=== PATIENT | male | born 1955 | race Caucasian/White ===

== ENCOUNTER → 2022-04-25 14:49 | Outpatient (BNVA) | payer BC, SELFPAY | PROVIDERS: Visit Provider Internal Medicine Cardiovascular Disease | DX: I49.9 Cardiac arrhythmia, unspecified (principal); I10 Essential (primary) hypertension | CPT/HCPCS: 93005 ==

== ENCOUNTER → 2022-05-24 14:08 | Outpatient (REF) | payer BC, SELFPAY ==
--- NOTE | 2022-05-24 14:15 | HM_ITS ---
Conclusion: 1. Patient was monitored for total period of 13 days and 13 hours 2. Baseline was normal sinus rhythm with average heart of 70 beats per minute 3. No significant pauses noted 4. Total of 151,621 PACs accounting for total of 11.3% of total beats account for frequent PACs next 5. Frequent episodes of SVT with longest lasting 49 beats and the fastest 166 beats per minute 5. Total of 4933 PVCs accounting for 0.4% of total beats account for occasional PVCs 6. Patient marked 1 counter which correlated with PVC and PAC MTDD
--- NOTE | 2022-05-24 14:15 | CA_ITS ---
Transthoracic Echocardiogram Patient (Last, First, Middle): Tom Rich, Gender: Male Date of : 1955 Age: 66 Procedure Date: 05/24/2022 Procedure Type: Transthoracic Echocardiogram Location: OP Height: 175.26 cm Weight: 88.45 kg BSA: 2.04 m2 Heart Rate: 81 bpm BP: 128 / 74 mmHg Director Of Revenue: ASHLEY Referring MD: Osman Coleman MD Symptoms: I49.9 - Cardiac arrhythmia, unspecified Study Quality: Adequate ECG Rhythm: Sinus Conclusions: - The left ventricular systolic function is normal. The calculated ejection fraction is 63% by biplane method. - Mildly increased right ventricular cavity size. - No obvious valvular pathology seen on this study. Findings Left Ventricle Normal left ventricular cavity size. There is normal left ventricular wall thickness. The left ventricular systolic function is normal. The calculated ejection fraction is 63% by biplane method. There is no evidence of regional wall motion abnormalities. Diastolic function is normal for age. LV peak GLS -12.2%, but possibly underestimate. Right Ventricle Mildly increased right ventricular cavity size. There is normal right ventricular systolic function. Atria Both atria are normal in size. There is lipomatous hypertrophy of the interatrial septum. Aortic Valve There is a normal trileaflet aortic valve. There is no aortic valve stenosis. There is no aortic valve regurgitation. Mitral Valve The mitral valve appears normal. There is trace mitral valve regurgitation. There is no mitral valve stenosis. Pulmonic Valve The pulmonic valve is likely normal. Tricuspid Valve Normal tricuspid valve structure. There is trace tricuspid valve regurgitation. There is no evidence of pulmonary hypertension. Great Vessels The asc aorta is normal in size. Venous The inferior vena cava is normal in size and collapses greater than 50% with inspiration. Pericardium/Pleural There is no evidence of pericardial effusion. Prior Study Comparison No prior study available for comparison. Recommendations, Care & Conclusions No obvious valvular pathology seen on this study. Measurements 2D Linear Measurements IVSd: 0.76 0.6-0.9/0.6-1.0 cm LVIDd: 5.12 3.9-5.3/4.2-5.9 cm LVIDd Index: 2.51 2.4-3.2/2.2-3.1 cm/m2 LVIDs: 3.29 2.0-3.6 cm LVPWd: 0.72 0.7-1.1 cm LA Diam: 4.00 2.7-3.8/3.0-4.0 cm LAIDs Index: 1.96 1.5-2.3 cm/m2 LV Mass: 158.46 67-162/88-224 g LV Mass Index: 77.68 43-95/49-115 g/m2 LVOT Diam: 2.50 3.0+(-)1.3 cm 2D Systolic Function EF 4C: 62.10 >55% EF 2C: 63.40 >55% EF BiP: 62.90 >55% Mitral Valve MV Pk E: 0.94 MV PK A: 0.90 MV Decel Time: 165.00 E/A: 1.10 E'Lateral: 9.57 E'Medial: 6.74 E/E' Med: 14.00 E/E' Lat: 9.90 PHT: 48.00 MVA PHT: 4.58 Decel [place]: 5.70 Aortic Valve AoV Pk Kenny: 1.24 AoV Mn Kenny: 0.92 AoV VTI: 0.24 AoV Pk Grad: 6.00 Aov Mn Grad: 4.00 AGUILA Cont.VTI: 3.38 LVOT LVOT Pk Kenny: 0.94 LVOT Mn Kenny: 0.59 LVOT VTI: 0.16 LVOT Pk Grad: 4.00 LVOT Mn Grad: 2.00 LVOT Diam: 2.50 LVOT Area: 4.91 Diastolic Function MV Pk E: 0.94 MV Pk A: 0.90 E/A: 1.10 E'Medial: 6.74 E/E' Med: 14.00 E' Laterial: 9.57 E/E' Lat: 9.90 Right Ventricle TAPSE (mm): 18.30 TVS' Kenny: 12.10 Tricuspid Valve RA Press: 8.00 Great Vessels Aorta Sinus of Valsalva: 3.60 2.0-3.5 cm Ao Asc: 3.70 2.1-3.4 cm Pulmonary Veins Pulm Vein S/D 1.20 Pulmonary Valve PV Pk Kenny: 1.00 Peak PV Grad: 4.00 Updated in Other Vendor System with Status of Final Jerardo Shepherd MD electronically signed on 05/26/2022 3:10:47 PM with status of Final
== END ==
LOC: HO.CARD 14:08
PROVIDERS: Visit Provider Internal Medicine Cardiovascular Disease
DX: I49.9 Cardiac arrhythmia, unspecified (principal)
CPT/HCPCS: 93246; 93306; 93356

== ENCOUNTER → 2022-05-27 08:52 | Outpatient (REF) | payer BC, SELFPAY ==
--- NOTE | ~2022-05-27 | NM_ITS ---
Exercise Myocardial perfusion study Indication: Chest pain to evaluate for myocardial ischemia Technique: The patient was brought in for an exercise perfusion study on 05/27/2022. Patient performed exercise as per Axel protocol and was injected 30 mCi of sestamibi was given intravenously one target HR was achieved. Images were obtained using the SPECT gamma camera interlaced with the gating device. Images were obtained in supine position. Resting perfusion study was performed on 06/02/2022. Patient was administered 30 mCi of sestamibi intravenously at rest. Images were then obtained in supine position. Images obtained with and without CT attenuation. Total DLP 106 mGy-cm. Images were processed with the software and compared side to side in short axis, horizontal long axis and vertical long axis views. Findings: The stress perfusion study showed non attenuated images show mildly reduced uptake in the inferior and inferoapical as well as basal lateral and inferolateral wall of the LV myocardium. Remainder of the LV myocardium is normally perfused. Attenuation corrected images show minimally reduced uptake in the apex of the LV myocardium.. The gated study shows normal LV systolic function with calculated LVEF of 69%. LV cavity is normal in size. The gated study shows normal systolic wall thickening and contraction of all segments. There is no transient ischemic dilation. Resting study shows nontender images show improved uptake in the inferior as well as basal lateral and inferolateral wall of the LV myocardium. Attenuation corrected images show minimally reduced uptake in the apex of the LV myocardium.. Gating at rest reveals normal systolic wall motion with ejection fraction at 59%. The findings are consistent with reversible defect seen on non attenuated images which could represent shifting attenuation artifact although ischemia cannot be entirely ruled out. Attenuated corrected images show no reversible defect and could be due to old correction images. NM/NM cardiolite stress test Impression: 1. Equivocal for inferior and basal lateral and inferolateral ischemia 2. Gated LVEF is 69% 3. Transient ischemic dilatation not present Stress EKG is equivocal for ischemia
--- NOTE | 2022-05-27 08:54 | CA_ITS ---
Acquisition Time: 2022-05-27 09:28:54 Total Exercise Time: 00:06:26 Test Indications: CP, Medications: Protocol: SUPA Max HR: 144 BPM 94% of Pred: 153 BPM Max BP: 140/070 mmHG Max Work Load: 7.5 METS Exercise stress test with 6 min 26 sec of Supa protocol achieving 92% of MPHR without anginal symptoms, with frequent PACs and occational PVCs, with normotensive reponse to exercise, withj EKG changes equivocal for ischemia; T wave inversion V1-V3 with exercise which could be related to RBBB and borderline ST changes leads 1 and aVL. Nuclear images pending. Test reviewed with Dr Shepherd. Referred By: Osman Coleman Overread By: PONCHO CISSE
== END ==
LOC: HO.CARD 08:52
PROVIDERS: Visit Provider Internal Medicine Cardiovascular Disease
DX: R07.9 Chest pain, unspecified (principal); I45.2 Bifascicular block
CPT/HCPCS: 78452; 93017; A9500

== ENCOUNTER 2022-07-02 07:31 | Outpatient (REF) | payer BC, SELFPAY ==
[2022-07-02 08:23] LABS: Anion Gap 12 (12-20); Blood Urea Nitrogen 23 mg/dL (9-16); Calcium 9.4 mg/dL (8.4-10.2); Carbon Dioxide 25 mmol/L (22-29); Chloride 105 mmol/L (96-108); Estimated Glomerular Filt Rate > 60; Glucose Random 91 mg/dL (60-115); Potassium 4.3 mmol/L (3.3-5.1); Sodium 138 mmol/L (135-145)
== END 2022-07-02 07:32 | disposition home or self-care (01) ==
LOC: HO.LAB 07:31
PROVIDERS: Visit Provider Internal Medicine Cardiovascular Disease
DX: Z01.812 Encounter for preprocedural laboratory examination (principal)
CPT/HCPCS: 36415; 80048

== ENCOUNTER → 2022-07-12 15:26 | Outpatient (BNVA) | payer BC, SELFPAY | PROVIDERS: PCP Nurse Practitioner Acute Care; Visit Provider Internal Medicine Cardiovascular Disease | DX: I25.10 Atherosclerotic heart disease of native coronary artery without angina pectoris (principal); I10 Essential (primary) hypertension; I49.9 Cardiac arrhythmia, unspecified | CPT/HCPCS: 99212 ==

== ENCOUNTER 2022-07-30 07:20 | Outpatient (REF) | payer BC, SELFPAY ==
[2022-07-30 09:37] LABS: Cholesterol 169 mg/dL; HDL Cholesterol 42 mg/dL; LDL Cholesterol Calculated 116 mg/dl; Triglycerides 56 mg/dL
[2022-08-01 16:03] LABS: CRP High Sensitivity 1.3 mg/L
== END 2022-07-30 07:21 | disposition home or self-care (01) ==
LOC: HO.LAB 07:20
PROVIDERS: PCP Nurse Practitioner Acute Care; Visit Provider Internal Medicine Cardiovascular Disease
DX: E78.5 Hyperlipidemia, unspecified (principal); I25.10 Atherosclerotic heart disease of native coronary artery without angina pectoris
CPT/HCPCS: 36415; 80061; 86141

== ENCOUNTER 2023-07-18 09:38 | Outpatient (AMB) | payer BC, SELFPAY ==
--- NOTE | 2023-07-18 09:39 | A.OFFVIS_ITS ---
Vital Signs 07/18/23 09:40 Height 5 ft 9 in Weight 196 lb 3.382 oz BMI 29.0 BP 130/82 Blood Pressure Location Lt brachial Position Sitting Pulse 73 Intake Visit Reasons: 1yr f/up Intake Note: 1 year follow-up with ekg ? 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 He continues to have no cardiac symptoms. Denies any exertional chest pain or shortness of breath. Denies any palpitations including prolonged irregular heartbeat or fast heart rate. Denies any lightheadedness, syncope. Takes all his medications. Last LDL was 116 mg/dL. He continues not to want to have statin therapy. Denies any heart failure symptoms. Review of Systems Const Denies chills, Denies fatigue, Denies fever(s), Denies frequent falls, Denies weakness, Denies weight gain and Denies weight loss ENT Denies dizziness Card Denies chest pain, Denies leg edema, Denies lightheadedness, Denies palpitations, Denies dyspnea, Denies dyspnea on exertion, Denies orthopnea and Denies other (loss of consciousness) Resp Denies cough, Denies dyspnea and Denies dyspnea on exertion GI Denies hematochezia and Denies change in stool character Musc Denies abnormal gait, Denies muscle weakness, Denies numbness, Denies radiating pain into limb and Denies tingling Neuro Denies Abnormal speech present, Denies abnormal gait, Denies dizziness, Denies frequent falls, Denies numbness, Denies tingling and Denies weakness Endo Denies fatigue and Denies palpitations Physical Exam Vital Signs: Last Vital Signs Pulse 73 07/18/23 09:40 BP 130/82 07/18/23 09:40 BMI result Body Mass Index 29.0 Const General: cooperative, comfortable, no acute distress, alert and awake Nutritional Appearance: overweight Orientation/consciousness: patient oriented x3 Limitations: no limitations Neck Neck: Yes trachea midline, Yes supple and Yes no JVD Resp Effort & Inspection: normal respiratory effort Auscultation: clear to auscultation bilaterally Cardio Jugular venous distension: no JVD Palpation: normal PMI Rate: regular rate Rhythm: abnormal rhythm with ectopic beats Heart sounds: S1 normal heart sound present, S2 normal heart sound present, no click, no gallops, no murmurs and no rubs GI Auscultation: normal bowel sounds Neuro General: patient oriented x3 and no focal motor deficits Speech: No Abnormal speech present Psych Appearance: grossly normal Office Procedures EKG Details: EKG shows normal sinus rhythm with right bundle and left anterior fascicular block with PACs, unchanged from before [id number], Complete Assessment & Plan Assessment & Plan (1) CAD (coronary artery disease): Code(s): I25.10 - Atherosclerotic heart disease of [place] coronary artery without angina pectoris Category: Medical Plan: CAD with nonobstructive plaquing in LAD. Discussed about management of atherosclerosis. His last LDL is 116 mg/dL, not well optimized. Target goal LDL should be closer to 60 mg/dL. Discussed with him. He said he has been trying diet therapy. He is going to repeat his lipid panel in near future. However he has not too excited about starting statin therapy. Currently on gemfibrozil therapy in his triglycerides while optimized. No additional therapy is needed at this point time. Continue aspirin therapy. Continue aggressive blood pressure control. Encouraged to continue to participate in physical activity as tolerated. Advised to call me with any new exertional symptoms. (2) HTN (hypertension): Code(s): I10 - Essential (primary) hypertension Category: Medical Plan: Hypertension which is currently well optimized advised to monitor blood pressure at home maintain a log. Recently lisinopril was increased due to white coat hypertension. Blood pressure at home are extremely well optimized. Continue the same. Continue stress mitigation strategies. Low-salt diet was discussed. (3) Cardiac arrhythmia: Code(s): I49.9 - Cardiac arrhythmia, unspecified Category: Medical Plan: Cardiac arrhythmias with frequent PACs, currently asymptomatic. No specific pharmacotherapy is required for the same. Recommend to avoid stimulants. Stress mitigation strategies were discussed advised to call me with any prolonged episodes of palpitations. (4) Bifascicular block: Code(s): I45.2 - Bifascicular block Category: Medical Plan: Bifascicular block which is stable. No interventions required per se for the same. Advised to call me with any symptoms of lightheadedness. Will follow up in the clinic in 1 year's time, sooner p.r.n.. Thank you for allowing me to partake in his care Coding Level of Care Code Est Pt Level 4 (30205) Diagnoses CAD (coronary artery disease) I25.10 HTN (hypertension) I10 Cardiac arrhythmia I49.9 Bifascicular block I45.2 CPT Codes EKG - CPT: 93763-[id number], Complete ([id number])
[2023-07-18 09:40] VITALS: BP 130/82; PULSE 73; BMI 29.0
== END 2023-07-18 10:16 | disposition home or self-care (01) ==
PROVIDERS: Visit Provider Internal Medicine Cardiovascular Disease
DX: I25.10 Atherosclerotic heart disease of native coronary artery without angina pectoris (principal); I10 Essential (primary) hypertension; I49.9 Cardiac arrhythmia, unspecified; I45.2 Bifascicular block
CPT/HCPCS: 93010; 99214

== ENCOUNTER → 2023-07-18 09:38 | Outpatient (BNVA) | payer BC, SELFPAY | PROVIDERS: Visit Provider Internal Medicine Cardiovascular Disease | DX: I25.10 Atherosclerotic heart disease of native coronary artery without angina pectoris (principal); I10 Essential (primary) hypertension; I49.9 Cardiac arrhythmia, unspecified; I45.2 Bifascicular block; Z79.82 Long term (current) use of aspirin; Z79.899 Other long term (current) drug therapy | CPT/HCPCS: 93005 ==

== ENCOUNTER 2024-07-16 08:38 | Outpatient (AMB) | payer BC, SELFPAY ==
--- NOTE | 2024-07-16 08:39 | MHC.OFFVIS ---
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 He has been doing very well from cardiac perspective. He says he regularly exercises and walks about 2-1/2 miles in 45 minutes and has no exertional symptoms of chest pain or shortness of breath. He denies any significant palpitations. Blood pressures been generally well controlled and he is maintaining a log with all of the blood pressures less than 130 systolic. He denies any other heart failure symptoms. Denies any lightheadedness, syncope. Takes all his medications. Recent lipid panel was done about 2 weeks ago, I do not have a copy of the same. Review of Systems Const Denies chills, Denies fatigue, Denies fever(s), Denies frequent falls, Denies weakness, Denies weight gain and Denies weight loss ENT Denies dizziness Card Denies chest pain, Denies leg edema, Denies lightheadedness, Denies palpitations, Denies dyspnea, Denies dyspnea on exertion, Denies orthopnea and Denies other (loss of consciousness) Resp Denies cough, Denies dyspnea and Denies dyspnea on exertion GI Denies hematochezia and Denies change in stool character Musc Denies abnormal gait, Denies muscle weakness, Denies numbness, Denies radiating pain into limb and Denies tingling Neuro Denies Abnormal speech present, Denies abnormal gait, Denies dizziness, Denies frequent falls, Denies numbness, Denies tingling and Denies weakness Endo Denies fatigue and Denies palpitations Physical Exam Vital Signs: Last Vital Signs Pulse 69 07/16/24 08:40 BP 116/82 07/16/24 08:40 BMI result Body Mass Index 29.9 Const General: cooperative, comfortable, no acute distress, alert and awake Nutritional Appearance: overweight Orientation/consciousness: patient oriented x3 Limitations: no limitations Neck Neck: Yes trachea midline, Yes supple and Yes no JVD Resp Effort & Inspection: normal respiratory effort Auscultation: clear to auscultation bilaterally Cardio Jugular venous distension: no JVD Palpation: normal PMI Rate: regular rate Rhythm: abnormal rhythm with ectopic beats Heart sounds: S1 normal heart sound present, S2 normal heart sound present, no click, no gallops, no murmurs and no rubs GI Auscultation: normal bowel sounds Neuro General: patient oriented x3 and no focal motor deficits Speech: No Abnormal speech present Psych Appearance: grossly normal Office Procedures EKG Details: EKG shows normal sinus rhythm with right bundle branch block as well as left anterior fascicular block with PACs, unchanged from before [id number], Complete Assessment & Plan Assessment & Plan (1) CAD (coronary artery disease): Code(s): I25.10 - Atherosclerotic heart disease of [place] coronary artery without angina pectoris Category: Medical Plan: Nonobstructive CAD with no new symptoms with exertion. Doing very well from that perspective. Does not require any further testing at this point time. However aggressive medical therapy is recommended to prevent further progression and/or having acute coronary syndrome. This was discussed with him. I would continue low-dose aspirin therapy. Continue aggressive blood pressure control which is currently well optimized on current therapy. Advised to continue monitor blood pressure at home maintain a log. Goal blood pressure less than 130/84. He is currently on gemfibrozil therapy for hypertriglyceridemia. I would like to see his lipid panel if he has elevated LDL would consider adding statin therapy although he is not too keen on it. Recommend couple of supplements such as garlic and red yeast rice to lower LDL cholesterol. Will think about the same. (2) Bifascicular block: Code(s): I45.2 - Bifascicular block Category: Medical Plan: Bifascicular block which has remained stable. No interventions required. Continue to monitor by annual EKG. (3) Cardiac arrhythmia: Code(s): I49.9 - Cardiac arrhythmia, unspecified Category: Medical Plan: Frequent PACs without any symptoms. Avoidance of stimulants was discussed. No pharmacotherapy is recommended for the same. Advised to call me with any prolonged palpitation irregular heartbeat. Patient was frequent PACs developed higher likelihood of developing atrial fibrillation. This was discussed with him. Will follow up in the clinic in 1 year's time, sooner p.r.n.. Thank you for allowing me to partake in his care Coding Level of Care Code Est Pt Level 4 (49438) Complex EM visit Add On [id number] Diagnoses CAD (coronary artery disease) I25.10 Bifascicular block I45.2 Cardiac arrhythmia I49.9 CPT Codes EKG - CPT: 00418-[id number], Complete ([id number])
[2024-07-16 08:40] VITALS: BP 116/82; PULSE 69; BMI 29.9
--- OUTSIDE RECORDS SUMMARY | 2024-07-16 09:03 | XMS_ITS | Clinical Summary ---
Author Organization [facility] Address [address] [place] [id number] Care Team Providers Care Behaviour Support Teacher Name Role Phone Lyric Allen APRN Primary Care Provider [phone] Lyric Allen BLAZE Unavailable [phone] Allergies Active Allergy Reactions Criticality Noted Date Comments Octacosanol Other (See Comments) 02/07/2024 Sneezing Medications aspirin 81 MG chewable tablet 05/26/2020 Act sandra amLODIPine (NORVASC) 10 MG tabletIndications :Essential hypertension TAKE 1 TABLET(10 MG) BY MOUTH DAILY 90 tablet 3 09/18/2023 Active gemfibrozil (LOPID) 600 MG tabletIndications :Hypertriglycerid emia Take 1 tablet (600 mg total) by mouth 2 (two) times a day before meals. 180 tablet 3 09/18/2023 Active lisinopril (PRINIVIL,ZeSTRIL ) 20 MG tabletIndications :Essential hypertension TAKE 1 TABLET BY MOUTH EVERY DAY 90 tablet 06/13/2024 Active Active Problems Problem Noted Date Diagnosed Date Essential hypertension 05/29/2020 Assessment & Plan (07/15/2024 2:56 PM EDT): Blood pressure readings are elevated in clinic today however home readings are normal. Will bring in BP monitor with next visit. Recommend exercising a minum of 150 minutes per week. modified Mediterranean style diet high in Fibrous Vegetables such as salad greens, raw carrots, broccoli, cauliflower, mushrooms, onions, asparagus, radishes, artichokes, cabbage, sweet potatoes, olive oil to promote growth of good bacteria in the GI tract; low in processed foods and sweets. Assessment & Plan (02/07/2024 5:34 PM EST): Blood pressure is normal. No side effects. Renal function is stable. Patient will continue lisinopril and amlodipine. DASH diet Recommend a minimum of 150 minutes of exercise a week. Assessment & Plan (08/13/2023 11:49 PM EDT): Tom blood pressure is elevated in clinic however blood pressure at home is within normal range. Will continue amlodipine and lisinopril. Check blood pressure twice a day for one week And notify the clinic of readings. DASH diet and exercise a minium of 150 minutes Assessment & Plan (07/09/2023 2:49 PM EDT): Blood pressure is not at goal. Increase Lisinopril to 20 mg. DASH diet Recommend a minimum of 150 minutes of exercise a week. Goal BP less than 130/80. Assessment & Plan (03/14/2023 4:35 AM EST): Blood pressure was elevated in clinic however as been normal at home. Patient will continue with current regimen. DASH diet Recommend a minium of 150 minutes of exercise a week. Check BP at home next couple of days and notify the clinic of readings. Assessment & Plan (09/12/2022 6:10 PM EDT): Blood pressure is normal. No side effects. Patient will continue with current regimen. DASH diet Recommend a minium of 150 minutes of exercise a week. Assessment & Plan (02/14/2022 2:42 PM EST): Tom is hypertensive on exam bilaterally. However home readings has been normal. Patient will check blood pressure daily and return in 1 week with blood pressure reading and blood pressure monitor. DASH diet Continue exercising daily Assessment & Plan (10/15/2021 10:24 PM EDT): Blood pressure normal on amlodipine and lisinopril. No side effects. Dash diet. Increase physical activity 3 to 5 days a week for minimum of 35 minutes. Assessment & Plan (07/14/2021 11:18 PM EDT): Arlen blood pressure is normal on amlodipine and lisinopril 10 mg. DASH diet Recommend exercising 3 to 5 days a week for minimum 35 minutes. Hyperlipidemia 05/29/2020 Assessment & Plan (02/07/2024 5:35 PM EST): Continue gemifbrozil Assessment & Plan (03/14/2023 4:38 AM EST): Total cholesterol- 169 LDL-116 HDL 42 Will continue Lopid for at this time and recheck lipid panel Assessment & Plan (09/12/2022 6:11 PM EDT): Cholesterol has improved, will follow-up with cardiology. Will refer to social work coordinator Assessment & Plan (10/15/2021 10:26 PM EDT): The 10-year ASCVD risk score (Nancy DC Jr., et al., 2013) is: 14.1% Values used to calculate the score: Age: 66 years Sex: Male Is Non- : No Diabetic: No Tobacco smoker: No Systolic Blood Pressure: 118 mmHg Is BP treated: Yes HDL Cholesterol: 56 mg/dL Total Cholesterol: 200 mg/dL Continue to gemfibrozil. 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 Encounters Date Type Department Care Team Description 06/27/2024 5:15 PM EDT Erroneous Encounter [address] [phone] Lyric Allen APRN Essential hypertension (Primary Dx); ERRONEOUS ENCOUNTER--DISREGARD 06/27/2024 Travel 06/12/[address] [id number] AlejandroLyric mendez, BLAZE Essential hypertension from Last 3 Months Immunizations Immunization Administration Dates Next Due Covid-19 mRNA Primary Series Vaccine - Moderna 0.5 mL Full Dose 07/16/2021,02/05/2021 Influenza High-Dose Quadriva lent,(FLUZONE HIGH-DOSE), Perservative Free IM 0.7 mL 65 years and older 12/10/2022,01/18/2021 Influenza High-Dose Trivalen t,(FLUZONE HIGH-DOSE), Perservative Free IM 0.5 mL 65 years and older 12/02/2023 Influenza Inactivated/Split Preservative Free IM 01/29/2018 Influenza, Quadrivalent (FLU ARIX, AFLURIA, FLULAVAL, FLUZONE) Preservative Free IM 12/18/2021 Influenza, Unspecified 12/02/2023,01/02/2020 Pneumococcal Conjugate 20-Valent 06/25/2021 RSV, Recombinant, Protein Torrez bunit RSV Prefusion F (AREXVY), Adjuvant Recon 0.5 mL PF 03/23/2024 Tdap 01/28/2022 Social History Tobacco Use Types Packs/Day Years Used Date Smoking Tobacco: Never Smokeless Tobacco: Never Tobacco Cessation:Counseling Given: Not Answered Alcohol Use Standard Drinks/Week Comments Never 0 (1 standard drink = 0.6 oz pur e alcohol) [facility] [employer] Answer Date Recorded In the past 12 months has [facility] [employer], gas, oil, or water [employer] threatened to shut off services in your home? No 02/04/2024 Social Connection and Isolat ion Panel [NHANES] Answer Date Recorded In a typical week, how many times do you talk on the phone with family, friends, or neighbors? More than three times a week 02/04/2024 Frequency of Social Gatherin gs with Friends and Family Not on file 02/04/2024 Attends Orthodoxy Services Not on file 02/03 Active Member of Clubs or Organizations Not on f ile 02/04/2024 Attends Club or Organization Meetings Not on em e 02/04/2024 Marital Status Not on file 02/04/2024 AUDIT-C Answer Date Recorded Q1: How often do you have a drink containing alc ohol? Monthly or less 02/04/2024 Q2: How many drinks containi ng alcohol do you have on a typical day when you are drinking? 1 or 2 02/04/2024 Frequency of Binge Drinking Not on file 01/18 PHQ-2 Answer Date Recorded PHQ-2 Total Score 0 03/07/2023 Hunger Vital Sign Answer Date Recorded Within the past 12 months, y ou worried that your food would run out before you got the money to buy more. Never true 02/04/20 24 Within the past 12 months, t he food you bought just didn't last and you didn't have money to get more. Never true 02/04/2024 PRAPARE - Transportation Answer Date Re corded In the past 12 months, has l ack of transportation kept you from medical appointments or from getting medications? No 01/18 In the past 12 months, has l ack of transportation kept you from meetings, work, or from getting things needed for daily living? No 02/04/2024 Housing Stability Vital Sign Answer Jose Martin e Recorded In the last 12 months, was t here a time when you were not able to pay the mortgage or rent on time? No 02/04/2024 In the past 12 months, how m any times have you moved where you were living? 0 02/04/2024 At any time in the past 12 m [facility], were you homeless or living in a jail (including now)? No 02/04/2024 Education Answer Date Recorded What is the highest level of school you have completed or the highest degree you have received? Associate degree: academic program 02/04/2024 Sex and Gender Information Value Date Recorded Sex Assigned at Male 07/05/2023 10:23 PM EDT Legal Sex Male 3:03 PM EDT Gender Identity Male 06/16/2021 4:27 PM EDT Sexual Orientation Heterosexual (straight) 06/16 4:27 PM EDT Last Filed Vital Signs Vital Sign Reading Time Taken Comments Blood Pressure 162/78 06/27/2024 5:00 PM EDT Pulse 75 06/27/2024 5:00 PM EDT Temperature 36.3 ??C (97.3 ??F) 06/27/2024 5:00 PM ED T Respiratory Rate 16 06/27/2024 5:00 PM EDT Oxygen Saturation 98% 06/27/2024 5:00 PM EDT Inhaled Oxygen Concentration - - Weight 92 kg (202 lb 12.8 oz) 06/27/2024 5:00 PM EDT Height 175.3 cm (5' 9 ) 06/27/2024 5:00 PM EDT Body Mass Index 29.95 06/27/2024 5:00 PM EDT Plan of Treatment Health Maintenance Due Date Last Done Comments Colonoscopy 09/22/1999 Zoster (Shingles) Vaccine (1 of 2) 2004 Physical 03/07/2024 03/07/2023, 02/14/2022 COVID-19 Vaccine ( season) 2024 12/02/2023, 12/10/2022, 12/11/2021, Additional history exists DTaP/Tdap/Td Vaccines (2 - Td or Tdap) 01/29/2032 01/28/2022 Hepatitis C Virus Screening Completed 05/21/2021 Pneumococcal Vaccines 50+ Completed 06/25/2021 Influenza Vaccine Completed 12/02/2023, , 12/10/2022, Additional history exists RSV Vaccine 60 years and older and Patients Completed 03/23/2024 Hepatitis B Vaccines Aged Out No long er eligible based on patient's age to complete this topic Procedures Procedure Name Priority Date/Time Associated Diagnosis Comments TSH REFLEX TO FREE T4 Routine 06/22/2024 9:20 AM EDT Screening for prostate cancer PSA Routine 06/22/2024 9:20 AM EDT Essential hypertension LIPID PANEL REFLEX DIRECT LDL Routine 06/22/2024 9:20 AM EDT Essential hypertension Other hyperlipidemia COMPREHENSIVE METABOLIC PANEL Routine 06/22/2024 9:20 AM EDT Essential hypertension COMPLETE BLOOD COUNT, WITHOUT DIFFERENTIAL Routine 06/22/2024 9:20 AM EDT Essential hypertension HEPATITIS C VIRUS (HCV) ANTIBODY Routine 05/21/2021 6:28 AM EST Need for hepatitis C screening test from Last 3 Months or Most Recently Relevant to Health Maintenance Results * (ABNORMAL) Lipid Panel Reflex Direct LDL (06/22/2024 9:20 AM EDT) Cholesterol, Total 186 <200 mg/dL [facility] Cholesterol, HDL 41 > OR = 40 mg/dL [facility] Triglycerides 100 <150 mg/dL [facility] LDL Cholesterol 124(H) mg/dL (calc) [facility] Comment: Reference range: <100 Desirable range <100 mg/dL for primary prevention; ?? <70 mg/dL for patients with CHD or diabetic patients with > or = 2 CHD risk factors. LDL-C is now calculated using the Julio calculation, which is a validated novel method providing better accuracy than the Friedewald equation in the estimation of LDL-C. Kendrick RAINEY et al. ALBERT. 2013;310(19): 5503-0086 (http://education.[employer]faq/SQU184) Cholesterol/HDL Ratio 4.5 <5.0 (calc) [facility] Non HDL Chol. (LDL+VLDL) 145(H) <130 mg/dL (calc) [facility] Comment: For patients with diabetes plus 1 major ASCVD risk factor, treating to a non-HDL-C goal of <100 mg/dL (LDL-C of <70 mg/dL) is considered a therapeutic option. Blood 06/22/2024 9:20 AM EDT 06/22/2024 9:21 AM EDT Narrative [facility] - 06/23/2024 7:34 AM EDT FASTING:YES FASTING: YES Lyric Allen APRN LAB BLOOD ORDERABLES Final Re sult [facility] [address] [place] [address] * TSH REFLEX FREE T4 (06/22/2024 9:20 AM EDT) TSH reflex Free T4 1.49 0.40 - 4.50 mIU/L [facility] Blood 06/22/2024 9:20 AM EDT 06/22/2024 9:21 AM EDT Narrative [facility] - 06/23/2024 7:34 AM EDT FASTING:YES FASTING: YES Lyric Allen BLAZE LAB BLOOD ORDERABLES Final Re sult Performing Organization Address [facility] de Phone Number [facility] [address] [place] [phone] * PSA (06/22/2024 9:20 AM EDT) Pathologist [facility] PSA, Total 0.36 < OR = 4.00 ng/mL [facility] Comment: The total PSA value from this assay system is standardized against the WHO standard. The test result will be approximately 20% lower when compared to the equimolar-standardized total PSA (Marco A [place]). Comparison of serial PSA results should be interpreted with this fact in mind. This test was performed using the Siemens chemiluminescent method. Values obtained from different assay methods cannot be used interchangeably. PSA levels, regardless of value, should not be interpreted as absolute evidence of the presence or absence of disease. Blood 06/22/2024 9:20 AM EDT 06/22/2024 9:21 AM EDT Narrative [facility] - 06/23/2024 7:34 AM EDT FASTING:YES FASTING: YES Lyric Allen BLAZE LAB BLOOD ORDERABLES Final Re sult Performing Organization Address [facility] de Phone Number [facility] [address] [place] [address] * Complete Blood Count, without Differential (06/22/2024 9:20 AM EDT) [facility] White Blood Cell Count 7.6 3.8 - 10.8 Thousand/u L [facility] Red Blood Cell Count 4.86 4.20 - 5.80 Million/uL [facility] Hemoglobin 14.6 13.2 - 17.1 g/dL [facility] Hematocrit 42.9 38.5 - 50.0 % [facility] MCV 88.3 80.0 - 100.0 fL [facility] MCH 30.0 27.0 - 33.0 pg [facility] MCHC 34.0 32.0 - 36.0 g/dL [facility] Comment: For adults, a slight decrease in the calculated MCHC value (in the range of 30 to 32 g/dL) is most likely not clinically significant; however, it should be interpreted with caution in correlation with other red cell parameters and the patient's clinical condition. RDW 12.7 11.0 - 15.0 % [facility] Platelet Count 252 140 - 400 Thousand/u L [facility] MPV 11.7 7.5 - 12.5 fL [facility] Blood Blood specimen / Unknown 06/22/2024 9:20 AM EDT 06/22/2024 9:21 AM EDT Narrative [facility] - 06/23/2024 7:34 AM EDT FASTING:YES FASTING: YES us Lyric Kit Allen POULTRY [employer] ICER LAB BLOOD ORDERABLES Final Re sult [facility] [address] [place] [phone] * Comprehensive Metabolic Panel (06/22/2024 9:20 AM EDT) [facility] Glucose 92 65 - 99 mg/dL [facility] Comment: ? Fasting reference interval Blood Urea Nitrogen (BUN) 18 7 - 25 mg/dL [facility] Creatinine 1.04 0.70 - 1.35 mg/dL [facility] Creatinine w/ eGFR 78 > OR = 60 mL/min/1. 73m2 [facility] BUN/Creatinine Ratio SEE NOTE: (calc) [facility] Comment: ?? Not Reported: BUN and Creatinine are within ?? reference range. ? Sodium 138 135 - 146 mmol/L [facility] Potassium 4.4 3.5 - 5.3 mmol/L [facility] Chloride 103 98 - 110 mmol/L [facility] CO2 27 20 - 32 mmol/L [facility] Calcium 9.2 8.6 - 10.3 mg/dL [facility] Protein, Total 7.5 6.1 - 8.1 g/dL [facility] Albumin 4.1 3.6 - 5.1 g/dL [facility] Globulin 3.4 1.9 - 3.7 g/dL (calc) [facility] Albumin/Globuli n Ratio 1.2 1.0 - 2.5 (calc) [facility] Bilirubin, Total 0.9 0.2 - 1.2 mg/dL [facility] Alkaline Phosphatase 55 35 - 144 U/L [facility] Aspartate Aminotrans (AST) 19 10 - 35 U/L [facility] Alanine Aminotrans (ALT) 11 9 - 46 U/L [facility] Blood 06/22/2024 9:20 AM EDT 06/22/2024 9:21 AM EDT Narrative [facility] - 06/23/2024 7:34 AM EDT FASTING:YES FASTING: YES Lyric Allen BLAZE LAB BLOOD ORDERABLES Final Re sult [facility] [address] [place] [phone] * Hepatitis C Virus (HCV) Antibody (05/21/2021 6:28 AM EST) Hepatitis C Antibody NON-REACT SANDRA NON-REACT SANDRA [facility] Hepatitis C Antibody (s/co) 0.01 <1.00 [facility] Comment: HCV antibody was non-reactive. There is no laboratory evidence of HCV infection. In most cases, no further action is required. However, if recent HCV exposure is suspected, a test for HCV RNA (test code 41977) is suggested. For additional information please refer to http://education.[employer]/faq/AQC05n9 (This link is being provided for informational/ educational purposes only.) Blood specimen (specimen) Blood specimen / Unknown 05/21/2021 6:28 AM EST 05/21/2021 6:28 AM EST Lyric Allen BLAZE LAB BLOOD ORDERABLES Final Re sult [facility] [address] [place] [address], [place] [address] from Last 3 Months or Most Recently Relevant to Health Maintenance Insurance [facility] Care Teams Behaviour Support Teacher Relationship Specialty Start Date End Date AlejandroLyric BLAZE [facility]anto[facility] [address] [place] [address] PCP - General Family Medicine 03/16/21 Lyric Allen APRN [address] [place] [address] PCP - [place] [employer] Attributed 08/18/21
--- OUTSIDE RECORDS SUMMARY | 2024-07-16 09:03 | XMS_ITS ---
Author Name [facility] Organization Unknown Results Test Name/Text Value Interpretation Date Range Source TSH SerPl-aCnc 1.49mIU/L Normal [id number] 0.4 - 4.5 QU EST MCH RBC Qn Auto 30pg Normal [id number] 27 - 33 Q [facility] Hgb Bld-mCnc 14.6g/dL Normal [id number] 13.2 - 17.1 QU EST WBC # Bld Auto 7.6Thousand/uL Normal [id number] 3.8 - 1 0.8 [facility] MCHC RBC Auto-EntMCnc 34g/dL Normal [id number] 32 - 36 [facility] RDW RBC Auto 12.7% Normal [id number] 11 - 15 [facility] T PMV Bld [place] 11.7fL Normal [id number] 7.5 - 12 .5 [facility] RBC # Bld Auto 4.86Million/uL Normal [id number] 4.2 - 5 .8 [facility] RBC Auto 88.3fL Normal [id number] 80 - 100 [facility] Hct VFr Bld Auto 42.9% Normal [id number] 38.5 - 50 [facility] Platelet # Bld Auto 252Thousand/uL Normal [id number] 14 0 - 400 [facility] Globulin Ser Calc-mCnc 3.4g/dL(calc) Normal [id number] 1.9 - 3.7 [facility] Potassium SerPl-sCnc 4.4mmol/L Normal [id number] 3.5 - 5.3 [facility] Albumin/Glob SerPl 1.2(calc) Normal [id number] 1 - 2.5 [facility] Creat SerPl-mCnc 1.04mg/dL Normal [id number] 0.7 - 1.35 [facility] Glucose SerPl-mCnc 92mg/dL Normal [id number] 65 - 99 [facility] BUN/Creat SerPl SEE NOTE: Normal [id number] 6 - 22 Q [facility] eGFRcr SerPlBld CKD-EPI 2020 78mL/min/1.73m2 Normal [id number] - [facility] Prot SerPl-mCnc 7.5g/dL Normal [id number] 6.1 - 8.1 Q [facility] ALT SerPl-cCnc 11U/L Normal [id number] 9 - 46 QU EST Bilirub SerPl-mCnc 0.9mg/dL Normal [id number] 0.2 - 1. 2 [facility] Albumin SerPl-mCnc 4.1g/dL Normal [id number] 3.6 - 5. 1 [facility] BUN SerPl-mCnc 18mg/dL Normal [id number] 7 - 25 QU EST Calcium SerPl-mCnc 9.2mg/dL Normal [id number] 8.6 - 10 .3 [facility] Sodium SerPl-sCnc 138mmol/L Normal [id number] 135 - 146 [facility] AST SerPl-cCnc 19U/L Normal [id number] 10 - 35 QU EST Chloride SerPl-sCnc 103mmol/L Normal [id number] 98 - 11 0 [facility] ALP SerPl-cCnc 55U/L Normal [id number] 35 - 144 QU EST CO2 SerPl-sCnc 27mmol/L Normal [id number] 20 - 32 QU EST PSA SerPl-mCnc 0.36ng/mL Normal [id number] - QU EST Cholest SerPl-mCnc 186mg/dL Normal [id number] - 200 [facility] Trigl SerPl-mCnc 100mg/dL Normal [id number] - 150 [facility] Cholest/HDLc SerPl 4.5(calc) Normal [id number] - 5 [facility] HDLc SerPl-mCnc 41mg/dL Normal [id number] - Q [facility] NonHDLc SerPl-mCnc 145mg/dL(calc) Above high normal [id number] - 130 [facility] LDLc SerPl Calc-mCnc 124mg/dL(calc) Above high normal [id number] [facility] History of Medication Use Medication Directions Dispensed Refills Start Date End Date Stat amLODIPine (NORVASC) 10 MG tablet TAKE 1 TABLET(10 MG) BY MOUTH DAILY 09/24/2021 active lisinopril (PRINIVIL,ZeSTRIL) 10 MG tablet TAKE 1 TABLET(10 MG) BY MOUTH DAILY 09/24/2021 active gemfibrozil (LOPID) 600 MG tablet Take 1 tablet (600 mg total) by mouth 2 (two) times a day before meals. 2021 12/12/2021 active baclofen (LIORESAL) 10 MG tablet Take 1 tablet (10 mg total) by mouth 2 (two) times a day. 09/02/2021 active aspirin 81 MG chewable tablet 05/26/2020 active Problems Problem Status Onset Date Problem Type Date of Resoluti on Source Essential hypertension active 2020-05-29 ProblemAct [facility] Hyperlipidemia active 2020-05-29 ProblemAct [facility] Immunizations Vaccine Date Source Lot Number Status Tdap 01/28/2022 [facility] [id number] completed Influenza Inactivated Stephon valent Preservative Free IM 12/18/2021 [facility] [id number] completed Covid-19 mRNA Primary Series Vaccine - Moderna 0.5 mL Full Dose 07/16/2021 [facility] completed Pneumococcal Conjugate 20-Valent 06/25/2021 [facility] completed Covid-19 mRNA Primary Series Vaccine - Moderna 0.5 mL Full Dose 02/05/2021 [facility] completed Influenza High-Dose Inactiva jatinder Perservative Free 01/18/2021 [facility] completed Influenza, Unspecified 01/02/2020 [facility] co mpleted Influenza Inactivated/Split Preservative Free IM 01/29/2018 [facility] [id number] completed Encounters Encounter Type Encounter Reason Primary Diagnosis Location Date Ambulatory Follow-up Follow-up [facility] 06/27/2024 Ambulatory Essential (primary) hypertension Essential (primary) hypertension [facility] 02/07/2024 Ambulatory [facility] 12/29/2023 Ambulatory Essential (primary) hypertension Essential (primary) hypertension [facility] 08/07/2023 Ambulatory Essential (primary) hypertension Essential (primary) hypertension [facility] 07/06/2023 Ambulatory Encounter for general adult medical examination without abnormal findings Encounter for general adult medical examination without abnormal findings [facility] 03/07/2023 Ambulatory Hyperlipidemia, unspecified [facility] 09/12/2022 Ambulatory Essential (prima ry) hypertension [facility] 02/22/2022 Ambulatory Encounter for general adult medical examination without abnormal findings [facility] 02/14/2022 Ambulatory Essential (prima ry) hypertension [facility] 10/11/2021 Ambulatory Cervicalgia [facility] 09/07/2021 Ambulatory Follow-up [facility] 07/08/2021 Ambulatory Essential (prima ry) hypertension [facility] 03/16/2021 Care Team Organization Name Specialty Phone Email Start Date End [facility] te [facility] 07/13/2024 [facility] Lyric Allen NP Primary Care 07/01/2024 [facility] 01/19/2023 024 [facility] Lyric Allen Primary Care 02/14/2022 [facility] RODGER WASSERMAN Primary Care 03/16/20212021 [facility] Lyric Allen NP Primary Care 03/16/2021 022
== END 2024-07-16 09:12 | disposition home or self-care (01) ==
LOC: HO.HCS 08:38
PROVIDERS: PCP Nurse Practitioner Acute Care; Visit Provider Internal Medicine Cardiovascular Disease
DX: I25.10 Atherosclerotic heart disease of native coronary artery without angina pectoris (principal); I45.2 Bifascicular block; I49.9 Cardiac arrhythmia, unspecified
CPT/HCPCS: 93010; 99214

== ENCOUNTER → 2024-07-16 08:38 | Outpatient (BNVA) | payer BC, SELFPAY | PROVIDERS: PCP Nurse Practitioner Acute Care; Visit Provider Internal Medicine Cardiovascular Disease | DX: I25.10 Atherosclerotic heart disease of native coronary artery without angina pectoris (principal); I45.2 Bifascicular block; I49.9 Cardiac arrhythmia, unspecified; Z79.82 Long term (current) use of aspirin | CPT/HCPCS: 93005 ==